=== PATIENT | female | born 1995 | race Two or more races ===

== ENCOUNTER 2022-08-21 04:23 | Inpatient (IN) | payer MEDICAID ==
[~2022-08-21] VITALS: Ht 175.3 cm; Wt 122.5 kg
[2022-08-21] MEDS ORDERED: PREN-96 PO (05:04)
[2022-08-21] MEDS ORDERED: LACTATED RINGER'S 1,000 ML IV ONE (07:15)
[2022-08-21] MEDS ORDERED: PROMETHAZINE HCL 25 MG/ML 1ML IV PRN (10:15)
[2022-08-21] MEDS ORDERED: LACT. RINGERS/OXYTOCIN 20UNITS 500 ML IV ONE ×2 (10:15→10:45)
[2022-08-21] MEDS ORDERED: DERMOPLAST 60ML BOTTLE TOP PRN (10:15)
[2022-08-21] MEDS ORDERED: LIDOCAINE 2%HCL (LOCAL ANESTH.) INJ 20ML MDV IJ PRN (10:15)
[2022-08-21] MEDS ORDERED: WITCH HAZEL-GLYCERIN PAD TOP PRN (10:15)
[2022-08-21] MEDS ORDERED: BUTORPHANOL TARTRATE 2 MG/1 ML VIAL IV PRN ×2 (10:15)
[2022-08-21] MEDS ORDERED: PHISODERM TOP SOLN 240ML BTL TOP PRN (10:15)
[2022-08-21] MEDS ORDERED: PENICILLIN G POT 5MIL/D5 50ML 50 ML IV ONE ×2 (10:15→10:45)
[2022-08-21] MEDS: miSOPROStol 50 MCG per PRE-CUT 1/2 TAB PO PRN ×4 (10:33→23:55)
[2022-08-21 10:41] LABS: Basophils # (auto) 0 10 ^3/uL (0-0.2); Basophils % (auto) 0.2 % (0.0-2.0); Eosinophils # (auto) 0 10 ^3/uL (0-0.8); Eosinophils % (auto) 0.3 % (0.0-7.0); Hematocrit 36.8 % (36.0-46.0); Hemoglobin 12.3 g/dL (12.2-16.2); Lymphocytes # (auto) 1.3 10 ^3/uL (0.4-5.4); Lymphocytes % (auto) 14.1 % (10.0-50.0); Mean Corpuscular Hemoglobin 28.8 pg (28.0-32.0); Mean Corpuscular Hgb Conc. 33.5 g/dL (32.0-36.0); Monocytes # (auto) 0.5 10 ^3/uL (0-1.3); Monocytes % (auto) 5.6 % (0.0-12.0); Neutrophils # (auto) 7.5 10 ^3/uL (1.6-8.6); Neutrophils % (auto) 79.8 % (37.0-80.0); Nucleated Red Blood Cells % 0.1 %; Red Blood Cells 4.28 10^6/uL (4.0-5.20); Red Cell Distribution Width 14.1 % (11.8-14.3); White Blood Cell 9.4 10^3/uL (4.4-10.8)
[2022-08-21 10:58] LABS: Potassium 3.9 mmol/L (3.5-5.1)
[2022-08-21 10:59] LABS: Urine Bacteria NONE SEEN /hpf (None Seen); Urine Blood 1+ /uL (Negative); Urine Specific Gravity 1.007 (1.001-1.035); Urine WBC 10 /hpf (0 - 5)
[2022-08-21 11:05] LABS: Barbiturate Scree,Urine NEGATIVE (NEGATIVE); Benzodiazephine Screen, Urine NEGATIVE (NEGATIVE); Cannabinoid Screen, Urine NEGATIVE (NEGATIVE)
[2022-08-21 11:06] LABS: Albumin 2.8 g/dL (3.4-5.0); BUN/Creatinine Ratio 13.6 (10.0-20.0); Bilirubin, Total 0.3 mg/dL (0.2-1.0); Calcium 8.3 mg/dL (8.5-10.1); Total Protein 6.4 g/dL (6.4-8.2)
[2022-08-21 11:08] LABS: Alcohol, Urine < 3.0 mg/dL (0-10); Amphetamine Screen, Urine NEGATIVE (NEGATIVE); Cocaine Screen, Urine NEGATIVE (NEGATIVE); Opiate Scree,Urine NEGATIVE (NEGATIVE); Phencyclidine Screen, Urine NEGATIVE (NEGATIVE)
[2022-08-21 11:20] LABS: INR 0.89 (0.9-1.15); Partial Thromboplastin Time 30.8 sec (24.6-33.4)
[2022-08-21] MEDS: LACTATED RINGER'S 1,000 ML IV SCH ×2 (12:11→15:24)
[2022-08-21] MEDS ORDERED: diphenhdrAMINE HCL 50 MG/1 ML VL IV PRN (13:00)
[2022-08-21] MEDS ORDERED: ONDANSETRON HCL 4 MG/2 ML VIAL IV PRN (13:00)
[2022-08-21] MEDS ORDERED: CARBOPROST TROMETHAMINE 250 MCG/1ML VIAL IM PRN (13:00)
[2022-08-21] MEDS ORDERED: MINERAL OIL TOPICAL 10ml TOP PRN (13:00)
[2022-08-21] MEDS ORDERED: miSOPROStol 100 mcg TAB SL PRN (13:00)
[2022-08-21] MEDS ORDERED: METHYLERGONOVINE MALEATE 0.2 MG/ML AMP IM PRN (13:00)
[2022-08-21] MEDS ORDERED: ACETAMINOPHEN 325 MG TAB PO PRN (13:00)
[2022-08-21] MEDS ORDERED: TRANEXAMIC ACID 1,000 MG in SODIUM CHL 0.9% 100 ML IV PRN (13:00)
[2022-08-21] MEDS ORDERED: PENICILLIN G POTASSIUM 2,500,000 UNITS in D5W 5% 50 ML IV SCH ×2 (14:15→14:45)
[2022-08-21] MEDS: PENICILLIN G POTASSIUM 2,500,000 UNITS in D5W 5% 50 ML IV SCH ×3 (15:38→22:56)
[2022-08-21] MEDS ORDERED: D5W/LACTATED RINGERS 1,000 ML IV SCH (16:00)
[2022-08-21] MEDS ORDERED: DIPHENOXYLATE W/ATROPINE 2.5 MG TAB PO SCH (18:00)
[2022-08-21] MEDS ORDERED: DIPHENOXYLATE W/ATROPINE 2.5 MG TAB PO PRN (19:30)
[2022-08-22] MEDS ORDERED: fentaNYL CITRATE 100 MCG/2 ML VL IV PRN (00:30)
[2022-08-22] MEDS: PENICILLIN G POTASSIUM 2,500,000 UNITS in D5W 5% 50 ML IV SCH ×3 (03:09→11:24)
[2022-08-22] MEDS ORDERED: NALBUPHINE HCL 10 MG/1ml INJECTION IV PRN (03:30)
[2022-08-22] MEDS: LACTATED RINGER'S 1,000 ML IV SCH ×3 (03:49→19:30)
[2022-08-22] MEDS: miSOPROStol 50 MCG per PRE-CUT 1/2 TAB PO PRN (04:43)
[2022-08-22 07:07] LABS: RPR Non Reactive (Non Reactive)
[2022-08-22] MEDS ORDERED: LACT. RINGERS/OXYTOCIN 20UNITS 1,000 ML IV SCH (07:30)
[2022-08-22 10:31] VITALS: BP 103/52
[2022-08-22] MEDS ORDERED: LIDOCAINE HCL 2 %PF INJ 10ML AMP IJ ONE (11:45)
[2022-08-22] MEDS ORDERED: ROPIVACAINE HCL 200 ML EPI SCH (11:45)
[2022-08-22] MEDS ORDERED: fentaNYL CITRATE 100 MCG/2 ML VL IV ONE (11:45)
[2022-08-22] MEDS ORDERED: ePHEDrine SULFATE 50 MG/ML AMP IV ONE (11:45)
[2022-08-22] MEDS ORDERED: NALOXONE HCL 0.4 MG/ML VIAL IV ONE (11:45)
[2022-08-22] MEDS ORDERED: LACTATED RINGER'S 1,000 ML IV ONE (11:45)
[2022-08-22] MEDS ORDERED: CARBOPROST TROMETHAMINE 250 MCG/1ML VIAL IM PRN (12:15)
[2022-08-22] MEDS ORDERED: CARBOPROST TROMETHAMINE 250 MCG/1ML VIAL IM ONE (12:19)
[2022-08-22] MEDS: ceFAZolin 1GM/50ML 50 ML IV SCH ×2 (12:57→20:30)
[2022-08-22] MEDS ORDERED: IBUPROFEN 600 MG TAB PO PRN (14:15)
[2022-08-22 15:00] VITALS: BP 139/84
[2022-08-22 15:43] LABS: Basophils # (auto) 0 10 ^3/uL (0-0.2); Basophils % (auto) 0.1 % (0.0-2.0); Eosinophils # (auto) 0 10 ^3/uL (0-0.8); Hematocrit 34.5 % (36.0-46.0); Hemoglobin 11.8 g/dL (12.2-16.2); Mean Corpuscular Hemoglobin 28.8 pg (28.0-32.0); Mean Corpuscular Hgb Conc. 34.1 g/dL (32.0-36.0); Mean Corpuscular Volume 84.5 fL (80.0-100.0); Monocytes # (auto) 0.9 10 ^3/uL (0-1.3); Monocytes % (auto) 4.8 % (0.0-12.0); Neutrophils # (auto) 17.2 10 ^3/uL (1.6-8.6); Neutrophils % (auto) 90.1 % (37.0-80.0); Red Blood Cells 4.09 10^6/uL (4.0-5.20); Red Cell Distribution Width 13.6 % (11.8-14.3); White Blood Cell 19.1 10^3/uL (4.4-10.8)
[2022-08-22] MEDS ORDERED: DOCUSATE SOD 100 MG CAP PO PRN (19:00)
[2022-08-22 19:06] VITALS: BP 120/65
[2022-08-22] MEDS: ACETAMINOPHEN 325 MG TAB PO PRN (21:36)
[2022-08-22] MEDS ORDERED: DIPHENOXYLATE W/ATROPINE 2.5 MG TAB PO SCH (22:00)
[2022-08-22 22:31] VITALS: BP 103/52
[2022-08-23 02:38] VITALS: BP 125/71
[2022-08-23] MEDS: ceFAZolin 1GM/50ML 50 ML IV SCH (04:06)
[2022-08-23 06:04] LABS: Basophils # (auto) 0 10 ^3/uL (0-0.2); Basophils % (auto) 0.2 % (0.0-2.0); Eosinophils # (auto) 0 10 ^3/uL (0-0.8); Eosinophils % (auto) 0.3 % (0.0-7.0); Hematocrit 26.1 % (36.0-46.0); Hemoglobin 8.9 g/dL (12.2-16.2); Lymphocytes # (auto) 1.6 10 ^3/uL (0.4-5.4); Lymphocytes % (auto) 15.5 % (10.0-50.0); Mean Corpuscular Hemoglobin 29.1 pg (28.0-32.0); Mean Corpuscular Hgb Conc. 34.3 g/dL (32.0-36.0); Mean Corpuscular Volume 84.9 fL (80.0-100.0); Monocytes # (auto) 0.8 10 ^3/uL (0-1.3); Neutrophils # (auto) 7.8 10 ^3/uL (1.6-8.6); Red Blood Cells 3.07 10^6/uL (4.0-5.20); Red Cell Distribution Width 14.1 % (11.8-14.3); White Blood Cell 10.3 10^3/uL (4.4-10.8)
[2022-08-23 07:00] VITALS: BP 111/57
[2022-08-23] MEDS: ACETAMINOPHEN 325 MG TAB PO PRN ×2 (08:13→15:38)
[2022-08-23 11:00] VITALS: BP 114/67
[2022-08-23 15:20] VITALS: BP 107/61
[2022-08-23] MEDS ORDERED: miSOPROStol 100 mcg TAB PO ONE (16:25)
[2022-08-23 19:07] VITALS: BP 136/85
[2022-08-23 23:12] VITALS: BP 127/74
[2022-08-24 03:13] VITALS: BP 125/69
[2022-08-24 07:12] VITALS: BP 107/56
== END 2022-08-24 10:20 | disposition home or self-care (01) | DRG 560 ==
LOC: LDRP 04:23 → OBSVTOIN 09:40 → LDRP 09:51
PROVIDERS: ADMIT Obstetrics & Gynecology; ATTEND Obstetrics & Gynecology
PROC: 10E0XZZ Delivery of Products of Conception, External Approach (ICD-10-PCS; principal; 2022-08-22)
PROC: 0KQM0ZZ Repair Perineum Muscle, Open Approach (ICD-10-PCS; 2022-08-22)
DX: O69.81X0 Labor and delivery complicated by cord around neck, without compression, not applicable or unspecified (principal); Z37.0 Single live birth; O72.1 Other immediate postpartum hemorrhage; O99.824 Streptococcus B carrier state complicating childbirth; O70.1 Second degree perineal laceration during delivery; Z3A.39 39 weeks gestation of pregnancy
CPT/HCPCS: 36415; 59025; 59409; 76818; 80053; 80307; 81001; 81002; 85025; 85610; 85730; 86592; 86850; 86900; 86901; 94760; 96360; 96361; 96365; 96366; G0378; J0690; J2405; J2540; J2590; J7060